=== PATIENT | female | born 2000 | race American Indian/Alaskan Native ===

== ENCOUNTER 2021-10-25 05:46 | Emergency (ER) | payer MEDICAID ==
[2021-10-25 05:50] VITALS: BP 123/85
--- NOTE | 2021-10-25 07:05 | Emergency Department Report ---
- General Chief Complaint: Upper Respiratory Infection Stated Complaint: COVID ILLNESS PUI?: Yes Source: patient, EMS Mode of arrival: Ambulatory Limitations: No Limitations - History of Present Illness Initial Comments: 21-year-old female presents to the ER today via EMS for cold symptoms. Patient requesting a COVID-19 test as she was exposed to someone with COVID. She states that her symptoms started 2 days ago. She reports mainly cough and runny nose. She denies any other symptoms. She has not got any of the COVID-19 vaccines. she has a history of tobacco use. She states that she is currently homeless and has no where to go. MD Complaint: cough, rhinorrhea, nasal congestion -: days(s) (2) - Related Data Home Medications Medication Instructions Recorded Confirmed Last Taken traZODone [Desyrel] 50 mg PO QHS PRN 12/17/15 12/17/15 Unknown Allergies Allergy/AdvReac Type Severity Reaction Status Date / Time No Known Allergies Allergy Unverified 12/17/15 01:28 ED Review of Systems ROS: Stated complaint: COVID ILLNESS Other details as noted in HPI Comment: All other systems reviewed and negative Constitutional: denies: chills, fever Eyes: denies: eye pain, eye discharge, vision change ENT: congestion, other (Rhinorrhea). denies: ear pain, throat pain, dental pain, hearing loss, epistaxis Respiratory: cough. denies: shortness of breath, SOB with exertion, SOB at rest, wheezing Cardiovascular: denies: chest pain, palpitations Endocrine: no symptoms reported Gastrointestinal: denies: abdominal pain, nausea, diarrhea, constipation, hematemesis, melena, hematochezia Genitourinary: denies: urgency, dysuria, frequency, hematuria, discharge, abnormal menses, dyspareunia, other Musculoskeletal: denies: joint swelling, arthralgia, myalgia Skin: denies: rash, lesions, change in color, change in hair/nails, pruritus Neurological: denies: headache, weakness, numbness, paresthesias, confusion, abnormal gait, vertigo Psychiatric: denies: anxiety, depression, auditory hallucinations, visual hallucinations, homicidal thoughts, suicidal thoughts Hematological/Lymphatic: denies: easy bleeding, easy bruising, swollen glands ED Past Medical Hx - Past Medical History Previous Medical History?: Yes Hx Psychiatric Treatment: (INSOMNIA) - Social History Smoking Status: Never Smoker Substance Use Type: None - Medications Home Medications: Home Medications Medication Instructions Recorded Confirmed Last Taken Type traZODone [Desyrel] 50 mg PO QHS PRN 12/17/15 12/17/15 Unknown History ED Physical Exam - General Limitations: No Limitations General appearance: alert, in no apparent distress - Head Head exam: Present: atraumatic, normocephalic, normal inspection - Eye Eye exam: Present: normal appearance, PERRL, EOMI Pupils: Present: normal accommodation - Neck Neck exam: Present: normal inspection, full ROM. Absent: meningismus - Respiratory Respiratory exam: Present: normal lung sounds bilaterally. Absent: respiratory distress, wheezes, rales, rhonchi - Cardiovascular Cardiovascular Exam: Present: regular rate, normal rhythm, normal heart sounds - Neurological Exam Neurological exam: Present: alert, oriented X3, CN II-XII intact, normal gait - Psychiatric Psychiatric exam: Present: normal affect, normal mood - Skin Skin exam: Present: intact ED Course Vital Signs 10/25/21 05:49 Temperature 98.9 F Pulse Rate 95 H Respiratory 18 Rate Blood Pressure 123/85 [Left] O2 Sat by Pulse 98 Oximetry ED Medical Decision Making - Medical Decision Making 21-year-old female presents to the ER today via EMS for cold symptoms. Patient requesting a COVID-19 test as she was exposed to someone with COVID. She states that her symptoms started 2 days ago. She reports mainly cough and runny nose. She denies any other symptoms. She has not got any of the COVID-19 vaccines. she has a history of tobacco use. She states that she is currently homeless and has no where to go. 0711: The patient is not ill-appearing, she is not toxic, she appears hydrated, she is not in any respiratory distress. She has no meningeal signs. Chest is clear to auscultation. She is mentally stable, neurologically intact with a normal gait. Her vital signs reviewed and stable. Informed patient that at this time we are not doing COVID-19 test through the ER. Recommend that she get a COVID-19 test at a local pharmacy, drive-through clinic or urgent care. List of local places was provided for patient. Recommend that she can take [id number] cough cold medications to help with her symptoms, drink lots of fluids, quarantine until she gets the results of her test. Patient expressed understanding. Patient was stable at time of discharge. Critical care attestation.: If time is entered above; I have spent that time in minutes in the direct care of this critically ill patient, excluding procedure time. ED Disposition Clinical Impression: URI (upper respiratory infection), Suspected COVID-19 virus infection Disposition: 01 HOME / SELF CARE / HOMELESS Is pt being admited?: No Does the pt Need Aspirin: No Condition: Stable Instructions: Upper Respiratory Infection, Adult, [id number] Additional Instructions: I recommend that you get outpatient COVID-19 test at any local urgent care, drive-through clinic or pharmacy. You can take uwbd-[id number] cough cold medications to help your symptoms. Recommend that you quarantine at until get the results of your test. You can take Tylenol and ibuprofen for any pain or fever. Drink lots of fluids. Return if worse. Referrals: PRIMARY CARE, [Referring] - 3-5 Days Time of Disposition: 07:05
== END 2021-10-25 07:33 | disposition home or self-care (01) ==
LOC: ED 05:46
DX: J06.9 Acute upper respiratory infection, unspecified (principal); Z20.822 Contact with and (suspected) exposure to COVID-19
CPT/HCPCS: 99283